=== PATIENT | female | born 1955 ===

== ENCOUNTER 2019-01-10 06:05 | Day surgery (SDC) | payer BC ==
[~2019-01-10] VITALS: Ht 149.9 cm; Wt 79.5 kg
[~2019-01-10 06:05] MED LIST: BUDE10.22 INH; Bisoprolol-Hct1 EAC1 PO; CHOL10002 PO; CO Q10200 MG PO; Fish Oil Conc1000 MG PO; Fish Oil PO; Flonase 0.05% N16 GM; Metformin HCl500 MG PO; Multiple Vitam1 EAC1; OMEP20ER PO; ROSU10TA PO
[2019-01-10] MEDS ORDERED: ALBU90OI INH (06:33)
--- NOTE | 2019-01-10 06:37 | NUR ---
MT ADITTED TO SDS. AGREES WITH PLANNED SURGERYL. LUNG SOUNDS CLEAR.
--- NOTE | 2019-01-11 09:51 | NUR ---
01/11/19 0951 Barbara Myers VERIFICTIONS: EDIT CHART.
== END 2019-01-10 23:06 | disposition home or self-care (01) ==
LOC: ORSCMMR 06:05 → ORD 07:30 → ORSCMMR 23:06
PROVIDERS: Orthopaedic Surgery
PROC: 0LN70ZZ Release Right Hand Tendon, Open Approach (ICD-10-PCS; principal; 2019-01-10 07:30)
DX: M65.311 Trigger thumb, right thumb (principal); M65.351 Trigger finger, right little finger; I10 Essential (primary) hypertension; G47.33 Obstructive sleep apnea (adult) (pediatric); E11.9 Type 2 diabetes mellitus without complications; E66.01 Morbid (severe) obesity due to excess calories; Z68.35 Body mass index [BMI] 35.0-35.9, adult; Z79.899 Other long term (current) drug therapy
CPT/HCPCS: 82947; J0690; J2250; J2704; J3010; J7120

== ENCOUNTER → 2020-05-18 | Outpatient (CLI) | payer BC ==
[~2020-05-18] MED LIST changes: +ALBU90OI INH
== END | disposition home or self-care (01) ==
LOC: LAB SHORT 12:02 → LAB 12:02
PROVIDERS: Nurse Practitioner
DX: Z01.419 Encounter for gynecological examination (general) (routine) without abnormal findings (principal)
CPT/HCPCS: G0145